=== PATIENT | female | born 1940 | race Caucasian/White ===

== ENCOUNTER 2019-01-12 14:52 | Inpatient (IN) | payer OTHER, MEDICAID ==
[~2019-01-12] VITALS: Ht 157.5 cm; Wt 65.4 kg
[~2019-01-12 14:52] MED LIST: ASPI-1158 PO; ATOR20TA65 MT; BRIM10DR2 EACHEYE; CALC-4 PO; CARV6.2548 PO; CLOP75TA16 PO; COMBIGAN RIGHTEYE; DEXL60CA3 PO; FAMO20TA8 PO; GABA-529 PO; GLIP10TA10 PO; LEVEMIR SQ; LEVO100T PO; LOSA25TA12 PO; NITR0.4T49 SL; PRED5TAB48 PO; SERT25TA74 PO; TRAM150C25 PO
[2019-01-12] MEDS ORDERED: SODIUM CHLORIDE 0.9% 1000ML BAG (SEPSIS BOLUS) IV ONE (15:45)
[2019-01-12 16:07] LABS: CHLORIDE 101 mEq/L (98-107)
[2019-01-12 16:08] LABS: PROTHROMBIN TIME 10.1 sec (9.6-11.0)
[2019-01-12 16:14] LABS: BASOPHILS % 0.6 % (0.0-2.0); EOSINOPHILS % 2.1 % (0.0-5.0); HEMATOCRIT. 30.2 % (36.0-48.0); HEMOGLOBIN. 10.4 g/dL (12.0-16.0); LYMPHOCYTES % 16.6 % (20.0-50.0); MEAN CORPUSCULAR HEMOGLOBIN 31.4 pg (28.0-32.0); MEAN CORPUSCULAR VOLUME 91.9 fL (81.0-99.0); MONOCYTES % 9.8 % (2.0-8.0); NEUTROPHILS % 70.9 % (40.0-76.0); PLATELET 221 x1000/uL (130-400); RED BLOOD CELL COUNT 3.29 mill/uL (4.2-5.4); RED CELL DISTRIBUTION WIDTH 14.2 % (11.6-14.6)
[2019-01-12 17:51] LABS: CLARITY URINE CLEAR (CLEAR); COLOR URINE YELLOW (YELLOW); KETONES URINE NEGATIVE (NEGATIVE); LEUKOCYTE ESTERASE URINE NEGATIVE (NEGATIVE); NITRITE URINE NEGATIVE (NEGATIVE); OCCULT BLOOD URINE TRACE (NEGATIVE); PH URINE 5.5 (4.5-8.0); PROTEIN URINE 3+ (NEGATIVE); SPECIFIC GRAVITY URINE 1.014 (1.005-1.030); UROBILINOGEN URINE 0.2 E.U./dL (0.2-1.0)
[2019-01-12] MEDS ORDERED: CEFTRIAXONE 1 G PREMIX 50 ML IV ONE (18:00)
[2019-01-12] MEDS ORDERED: DOXYCYCLINE HYCLATE 100 MG/VIAL IV ONE (18:00)
[2019-01-12] MEDS ORDERED: DOXYCYCLINE 100MG in DEXTROSE 5% WATER 100ML IV NR (18:18)
[2019-01-12] MEDS ORDERED: ONDANSETRON HCL 4MG/2ML INJ IV PRN (19:45)
[2019-01-12] MEDS ORDERED: DOCUSATE SODIUM 100MG CAPSULE PO PRN (19:45)
[2019-01-12] MEDS ORDERED: CLONIDINE 0.1MG TABLET PO PRN (19:45)
[2019-01-12] MEDS ORDERED: IPRATROPIUM/ALBUTEROL 0.5-3(2.5)MG/3ML NEB INH PRN (19:45)
[2019-01-12] MEDS ORDERED: DIPHENHYDRAMINE 50MG/ML VIAL IV PRN (19:45)
[2019-01-12] MEDS ORDERED: MAGNESIUM/ALUMINUM HYDROXIDE/SIMETHICONE 30ML UDC PO PRN (19:45)
[2019-01-12 20:50] LABS: PHOSPHORUS 3.7 mg/dL (2.5-4.9)
[2019-01-12] MEDS ORDERED: SODIUM POLYSTYRENE SULFONATE 15 G/60 ML BOT PO NR (21:00)
[2019-01-12] MEDS ORDERED: DEXTROSE 50% WATER 50ML SYRINGE IV PRN (21:47)
[2019-01-12] MEDS: INSULIN LISPRO 100 UNITS/ML SUBCUT SCH (21:56)
[2019-01-12 22:30] VITALS: BP 166/69
[2019-01-12] MEDS: BLOOD SUGAR DIAGNOSTIC STRIP TEST SCH (22:30)
[2019-01-13 01:46] LABS: CREATINE KINASE 94 IU/L (26-192)
[2019-01-13 01:47] LABS: CREATINE KINASE MB FRACTION < 1.0 ng/mL (0.5-3.6)
[2019-01-13 04:00] VITALS: BP 142/62
[2019-01-13] MEDS: BLOOD SUGAR DIAGNOSTIC STRIP TEST SCH ×4 (06:45→21:22)
[2019-01-13 07:07] LABS: BASOPHILS % 0.8 % (0.0-2.0); HEMOGLOBIN. 9.7 g/dL (12.0-16.0); LYMPHOCYTES % 16.5 % (20.0-50.0); MEAN CORPUSCULAR HEMOGLOBIN 31.8 pg (28.0-32.0); MEAN CORPUSCULAR VOLUME 92.2 fL (81.0-99.0); MEAN PLATELET VOLUME 9.4 fl (7.4-10.4); MONOCYTES % 8.3 % (2.0-8.0); NEUTROPHILS % 73.4 % (40.0-76.0); PLATELET 189 x1000/uL (130-400); RED BLOOD CELL COUNT 3.04 mill/uL (4.2-5.4); RED CELL DISTRIBUTION WIDTH 13.9 % (11.6-14.6)
[2019-01-13 07:52] LABS: CHLORIDE 108 mEq/L (98-107)
[2019-01-13 08:00] VITALS: BP 135/58
[2019-01-13 08:03] LABS: CREATINE KINASE 67 IU/L (26-192)
[2019-01-13 08:09] LABS: LDL CHOLESTEROL 105 mg/dL (5-100)
[2019-01-13 08:10] LABS: HDL CHOLESTEROL 58 mg/dL (40-59)
[2019-01-13 08:15] LABS: CREATINE KINASE MB FRACTION < 1.0 ng/mL (0.5-3.6)
[2019-01-13] MEDS: HYDROCODONE/ACETAMINOPHEN 5/325MG TABLET PO PRN (09:07)
[2019-01-13] MEDS: INSULIN LISPRO 100 UNITS/ML SUBCUT SCH ×4 (09:07→21:26)
[2019-01-13 12:00] VITALS: BP 142/58
[2019-01-13 16:00] VITALS: BP 156/60
[2019-01-13] MEDS: CEFTRIAXONE 1 G PREMIX 50 ML IV SCH (17:22)
[2019-01-13] MEDS: AZITHROMYCIN 500 MG in DEXT 5% WATER 250 ML IV SCH (18:10)
[2019-01-13 20:00] VITALS: BP 145/68
[2019-01-13] MEDS: IPRATROPIUM/ALBUTEROL 0.5-3(2.5)MG/3ML NEB HHN SCH (20:20)
[2019-01-13 20:21] LABS: T4 FREE 0.67 ng/dL (0.76-1.46)
[2019-01-14] VITALS: BP 147/65
[2019-01-14] MEDS: IPRATROPIUM/ALBUTEROL 0.5-3(2.5)MG/3ML NEB HHN SCH ×6 (00:29→20:55)
[2019-01-14] MEDS: ACETYLCYSTEINE 100MG/ML 10% VIAL 4ML INH SCH ×3 (00:29→16:04)
[2019-01-14 04:00] VITALS: BP 140/52
[2019-01-14] MEDS: ACETAMINOPHEN 325MG TABLET PO PRN ×2 (04:50→11:17)
[2019-01-14 06:41] LABS: BASOPHILS % 0.5 % (0.0-2.0); EOSINOPHILS % 2.5 % (0.0-5.0); HEMOGLOBIN. 9.7 g/dL (12.0-16.0); LYMPHOCYTES % 26.6 % (20.0-50.0); MEAN CORPUSCULAR VOLUME 92.3 fL (81.0-99.0); MEAN PLATELET VOLUME 9.5 fl (7.4-10.4); MONOCYTES % 8.1 % (2.0-8.0); NEUTROPHILS % 62.3 % (40.0-76.0); PLATELET 182 x1000/uL (130-400); RED BLOOD CELL COUNT 3.04 mill/uL (4.2-5.4); RED CELL DISTRIBUTION WIDTH 13.9 % (11.6-14.6)
[2019-01-14 07:08] LABS: PHOSPHORUS 2.9 mg/dL (2.5-4.9)
[2019-01-14 08:00] VITALS: BP 133/53
[2019-01-14] MEDS: INSULIN LISPRO 100 UNITS/ML SUBCUT SCH ×4 (08:24→21:58)
[2019-01-14] MEDS: BLOOD SUGAR DIAGNOSTIC STRIP TEST SCH ×4 (08:25→20:45)
[2019-01-14] MEDS ORDERED: BISACODYL 5MG TABLET PO PRN (11:30)
[2019-01-14] MEDS ORDERED: LACTULOSE 20G/30ML UDC PO PRN (11:30)
[2019-01-14 12:00] VITALS: BP 123/48
[2019-01-14 16:00] VITALS: BP 128/53
[2019-01-14] MEDS: CEFTRIAXONE 1 G PREMIX 50 ML IV SCH (16:35)
[2019-01-14] MEDS: AZITHROMYCIN 500 MG in DEXT 5% WATER 250 ML IV SCH (17:36)
[2019-01-14] MEDS ORDERED: METFORMIN HCL 500MG TABLET PO SCH (18:10)
[2019-01-14] MEDS ORDERED: NON FORMULARY PATIENT HOME MED XX SCH (19:45)
[2019-01-14] MEDS: GUAIFENESIN 200MG/10ML SUGAR FREE UDC PO PRN (20:04)
[2019-01-14] MEDS: HYDROCODONE/ACETAMINOPHEN 5/325MG TABLET PO PRN (20:06)
[2019-01-14 20:25] VITALS: BP 152/55
[2019-01-14] MEDS: CARVEDILOL 6.25 MG TABLET PO SCH (20:40)
[2019-01-14] MEDS ORDERED: ATORVASTATIN CALCIUM 20MG TABLET PO SCH (21:00)
[2019-01-14] MEDS: CALCIUM CARBONATE/VITAMIN D3 500MG TABLET PO SCH (21:57)
[2019-01-14] MEDS: BRIMONIDINE 0.2% OPHTH DROPS 5ML EACHEYE SCH (23:13)
[2019-01-14] MEDS: TIMOLOL MALEATE 0.5% OPHTH DROPS 5ML EACHEYE SCH (23:13)
[2019-01-14] MEDS: INSULIN GLARGINE UD 100 UNITS/ML SYR SUBCUT SCH (23:16)
[2019-01-14] MEDS: LEVOTHYROXINE SODIUM 200MCG TABLET PO SCH (23:21)
[2019-01-15] VITALS: BP 135/60
[2019-01-15] MEDS: IPRATROPIUM/ALBUTEROL 0.5-3(2.5)MG/3ML NEB HHN SCH ×5 (00:55→17:12)
[2019-01-15] MEDS: ACETYLCYSTEINE 100MG/ML 10% VIAL 4ML INH SCH ×3 (00:55→17:11)
[2019-01-15 04:00] VITALS: BP 136/64
[2019-01-15] MEDS: GUAIFENESIN 200MG/10ML SUGAR FREE UDC PO PRN (04:46)
[2019-01-15] MEDS: CALCIUM CARBONATE/VITAMIN D3 500MG TABLET PO SCH ×2 (05:58→16:41)
[2019-01-15] MEDS: BLOOD SUGAR DIAGNOSTIC STRIP TEST SCH ×3 (06:03→17:42)
[2019-01-15 06:58] LABS: BASOPHILS % 1.1 % (0.0-2.0); EOSINOPHILS % 5.2 % (0.0-5.0); HEMATOCRIT. 27.4 % (36.0-48.0); HEMOGLOBIN. 9.4 g/dL (12.0-16.0); LYMPHOCYTES % 19.7 % (20.0-50.0); MEAN CORPUSCULAR HEMOGLOBIN 31.4 pg (28.0-32.0); MEAN CORPUSCULAR VOLUME 91.5 fL (81.0-99.0); MEAN PLATELET VOLUME 9.4 fl (7.4-10.4); MONOCYTES % 8.2 % (2.0-8.0); NEUTROPHILS % 65.8 % (40.0-76.0); PLATELET 212 x1000/uL (130-400); RED CELL DISTRIBUTION WIDTH 13.9 % (11.6-14.6)
[2019-01-15 07:16] LABS: PHOSPHORUS 2.9 mg/dL (2.5-4.9)
[2019-01-15 07:21] LABS: FOLIC ACID (FOLATE) SERUM 11.2 ng/mL (>5.38)
[2019-01-15] MEDS ORDERED: GLIPIZIDE 5MG TABLET PO SCH (07:40)
[2019-01-15 08:00] VITALS: BP 166/61
[2019-01-15] MEDS: INSULIN LISPRO 100 UNITS/ML SUBCUT SCH ×3 (08:10→17:44)
[2019-01-15] MEDS: LEVOTHYROXINE SODIUM 200MCG TABLET PO SCH (08:36)
[2019-01-15] MEDS: GLIPIZIDE 10MG TABLET PO SCH ×2 (08:36→17:46)
[2019-01-15] MEDS: CARVEDILOL 6.25 MG TABLET PO SCH (08:37)
[2019-01-15] MEDS: TIMOLOL MALEATE 0.5% OPHTH DROPS 5ML EACHEYE SCH ×2 (08:45→16:42)
[2019-01-15] MEDS: BRIMONIDINE 0.2% OPHTH DROPS 5ML EACHEYE SCH ×2 (08:45→16:41)
[2019-01-15] MEDS ORDERED: SERTRALINE HCL 100MG TABLET PO SCH (09:00)
[2019-01-15] MEDS ORDERED: ASPIRIN 81MG TABLET PO SCH (09:00)
[2019-01-15] MEDS ORDERED: CLOPIDOGREL 75MG TABLET PO SCH (09:00)
[2019-01-15] MEDS: INSULIN GLARGINE UD 100 UNITS/ML SYR SUBCUT SCH (10:09)
[2019-01-15 12:00] VITALS: BP 95/47
[2019-01-15] MEDS ORDERED: LANTUSUD SUBCUT (14:35)
[2019-01-15] MEDS ORDERED: AZIT500T5 MT (14:41)
[2019-01-15] MEDS: CEFTRIAXONE 1 G PREMIX 50 ML IV SCH (17:17)
[2019-01-15 17:32] VITALS: BP 124/52
== END 2019-01-15 18:20 | disposition home or self-care (01) | DRG 871 ==
LOC: ER 14:52 → EDBEDREQ 16:04 → EDBEDREQTM 18:14 → EDBEDREQSVC 18:14 → 7WST 18:21 → EDBEDREQ 18:22 → EDBEDREQTM 18:22 → ENRESERV 20:50
PROVIDERS: ADMIT Internal Medicine; ATTEND Internal Medicine
DX: A41.9 Sepsis, unspecified organism (principal); J18.9 Pneumonia, unspecified organism; J96.00 Acute respiratory failure, unspecified whether with hypoxia or hypercapnia; E87.1 Hypo-osmolality and hyponatremia; N17.9 Acute kidney failure, unspecified; G93.40 Encephalopathy, unspecified; E03.9 Hypothyroidism, unspecified; R65.20 Severe sepsis without septic shock; E78.5 Hyperlipidemia, unspecified; E87.5 Hyperkalemia; D63.8 Anemia in other chronic diseases classified elsewhere; N18.9 Chronic kidney disease, unspecified; E11.22 Type 2 diabetes mellitus with diabetic chronic kidney disease; E11.649 Type 2 diabetes mellitus with hypoglycemia without coma; I25.10 Atherosclerotic heart disease of native coronary artery without angina pectoris; I12.9 Hypertensive chronic kidney disease with stage 1 through stage 4 chronic kidney disease, or unspecified chronic kidney disease; W18.30XA Fall on same level, unspecified, initial encounter; E86.1 Hypovolemia; Y99.8 Other external cause status; Y92.009 Unspecified place in unspecified non-institutional (private) residence as the place of occurrence of the external cause; Z79.82 Long term (current) use of aspirin; I25.2 Old myocardial infarction; Y93.89 Activity, other specified; Z82.49 Family history of ischemic heart disease and other diseases of the circulatory system; Z83.3 Family history of diabetes mellitus; Z90.49 Acquired absence of other specified parts of digestive tract; Z95.5 Presence of coronary angioplasty implant and graft; Z79.899 Other long term (current) drug therapy
CPT/HCPCS: 36415; 71045; 74176; 80048; 80061; 82550; 82553; 82607; 82728; 82746; 82962; 83036; 83540; 83550; 83605; 83735; 83880; 84100; 84145; 84439; 84443; 84481; 84484; 85651; 86431; 87804; 93005; 93970; 94640; 96365; 96366; 97162; 97166; 99285; A6261; C1893; J0456; J0696; J1815; J3490; J7030; J7050; J7060; J7608; J7620

== ENCOUNTER 2019-06-09 08:33 | Emergency (ER) | payer OTHER, MEDICAID ==
[~2019-06-09] VITALS: Ht 157.5 cm; Wt 60.0 kg
[~2019-06-09 08:33] MED LIST changes: +AZIT500T5 MT; -CLOP75TA16 PO; +CLOP75TA4 PO; -DEXL60CA3 PO; -GABA-529 PO; +LANTUSUD SUBCUT; -LEVEMIR SQ; -LOSA25TA12 PO
[2019-06-09] MEDS ORDERED: ACETAMINOPHEN 500MG TABLET PO ONE (09:30)
[2019-06-09] MEDS ORDERED: IBUPROFEN 400MG TABLET PO ONE (09:30)
[2019-06-09] MEDS: GLYBURIDE 5MG TABLET PO SCH ×2 (18:37→18:40)
[2019-06-09 19:00] VITALS: BP 140/85
== END 2019-06-09 19:10 | disposition home or self-care (01) ==
LOC: ER 08:33
DX: M25.562 Pain in left knee (principal); M25.561 Pain in right knee; Z91.81 History of falling; E11.9 Type 2 diabetes mellitus without complications; I10 Essential (primary) hypertension; Z79.899 Other long term (current) drug therapy
CPT/HCPCS: 73562; 82962; 99284